=== PATIENT | male | born 1950 | race Caucasian/White ===

== ENCOUNTER 2016-07-04 12:44 | Observation (INO) | payer OTHER, MEDICARE ==
[~2016-07-04] VITALS: Ht 170.2 cm; Wt 86.5 kg
[~2016-07-04 12:44] MED LIST: ERYTHROMYC1 APPLICAT RIGHT EYE; GLUCOTROL10 MG PO; LISINOPRIL20 MG PO; METFORMIN HCL1000 MG PO; NICOTINE PATCH1 EAC2 TD; OMEPRAZOLE20 MG PO; PERCOCET 5/31 TABLET PO; SIMVASTATIN20 MG PO; SIMVASTATIN40 MG PO
[2016-07-04 13:44] LABS: HEMATOCRIT 49.2 % (38.0-50.0); MCH 30.4 PG (29.0-34.0); MCHC 33.5 G/DL (30.0-36.0); MCV 90.6 FL (86-99); MEAN PLAT.VOLUME 9.2 uM^3 (9.0-12.4); PLATELET COUNT 324 K/uL (156-360); RBC DIS.WIDTH-CV 12.1 % (11.8-14.6); RBC DIS.WIDTH-SD 40.5 % (39-53); RED BLOOD COUNT 5.43 M/uL (4.00-5.50); WHITE BLOOD COUNT 18.2 K/uL (4.1-10.2)
[2016-07-04 13:59] LABS: CHLORIDE 101 mEq/L (99-109); POTASSIUM 4.4 mEq/L (3.7-5.4); SODIUM 135 mEq/L (136-147)
[2016-07-04 14:00] LABS: GLUCOSE 93 mg/dL (70-99)
[2016-07-04 14:02] LABS: ANION GAP 11 MEQ/L (2-14)
[2016-07-04 14:04] LABS: GFR ESTIMATE (CALCULATED) > 59 mL/min/
[2016-07-04 14:05] LABS: UREA NITROGEN (BUN) 13 mg/dL (9-23)
[2016-07-04 14:11] LABS: TROP-I INTERPRETATION NEGATIVE; TROPONIN-I < 0.01 ng/mL (0.0-0.30)
[2016-07-04 18:12] LABS: ADD MIUA? YES; BILIRUBIN NEGATIVE; BLOOD SMALL; COLOR YELLOW ((YELLOW)); GLUCOSE (STRIP) NEGATIVE; KETONES NEGATIVE; LEUKOCYTES NEGATIVE; NITRITE NEGATIVE; PROTEIN (STRIP) 30; SPECIFIC GRAVITY 1.008 (1.000-1.030); UROBILINOGEN 0.2 MG/DL (0.2-1.0)
[2016-07-04 18:21] LABS: BACTERIA NONE SEEN /HPF; EPITHELIAL CELLS NONE SEEN /HPF; MUCUS NONE SEEN /LPF; RED BLOOD CELLS 0-5 /HPF (0-5); WHITE BLOOD CELLS 0-5 /HPF (0-5)
[2016-07-04 20:16] VITALS: BP 129/69
[2016-07-04 22:20] LABS: TROP-I INTERPRETATION NEGATIVE; TROPONIN-I < 0.01 ng/mL (0.0-0.30)
[2016-07-05 03:35] VITALS: BP 113/84
[2016-07-05 03:49] LABS: BASOPHIL COUNT 0.1 K/uL (0-0.1); EOSINOPHIL COUNT 0.2 K/uL (0-0.3); HEMATOCRIT 45.9 % (38.0-50.0); IMMATURE GRANULOCYTE (%) 1.8 % (0.0-0.7); IMMATURE GRANULOCYTE COUNT 0.3 K/uL; INSTRUMENT ABS NEUTROPHIL CT 9.8 K/uL; LYMPHOCYTE COUNT 4.6 K/uL (1.0-2.8); MCH 30.5 PG (29.0-34.0); MCHC 33.6 G/DL (30.0-36.0); MCV 90.9 FL (86-99); MEAN PLAT.VOLUME 9.3 uM^3 (9.0-12.4); MONOCYTE (%) 5.4 % (3-12); MONOCYTE COUNT 0.9 K/uL (0-0.8); NEUTROPHIL COUNT 9.8 K/uL (1.8-6.4); PLATELET COUNT 298 K/uL (156-360); RBC DIS.WIDTH-CV 12.2 % (11.8-14.6); RBC DIS.WIDTH-SD 40.5 % (39-53); RED BLOOD COUNT 5.05 M/uL (4.00-5.50); WHITE BLOOD COUNT 15.8 K/uL (4.1-10.2)
[2016-07-05 04:08] LABS: CHLORIDE 105 mEq/L (99-109); POTASSIUM 4.5 mEq/L (3.7-5.4); SODIUM 138 mEq/L (136-147)
[2016-07-05 04:11] LABS: GLUCOSE 130 mg/dL (70-99)
[2016-07-05 04:12] LABS: ANION GAP 10 MEQ/L (2-14)
[2016-07-05 04:13] LABS: TOTAL BILIRUBIN 0.4 mg/dL (0.0-1.0)
[2016-07-05 04:14] LABS: ALKALINE PHOSPHATASE 54 IU/L (3-129)
[2016-07-05 04:15] LABS: GFR ESTIMATE (CALCULATED) > 59 mL/min/
[2016-07-05 04:16] LABS: DIRECT BILIRUBIN 0.1 mg/dL (0.0-0.3); UREA NITROGEN (BUN) 14 mg/dL (9-23)
[2016-07-05 04:18] LABS: TROP-I INTERPRETATION NEGATIVE; TROPONIN-I < 0.01 ng/mL (0.0-0.30)
[2016-07-05 07:24] VITALS: BP 118/69
[2016-07-05 08:56] VITALS: BP 130/71
[2016-07-05 10:58] VITALS: BP 142/74
[2016-07-05] MEDS ORDERED: AMOXICILLIN500 MG PO (15:04)
== END 2016-07-05 16:38 | disposition home or self-care (01) ==
LOC: EME 12:44 → EDOF 18:10 → 5WEST 18:10 → EDOF 18:10 → 5WEST 19:48
PROVIDERS: Internal Medicine; Physician Assistant
DX: R55 Syncope and collapse (principal); R07.89 Other chest pain; J01.00 Acute maxillary sinusitis, unspecified; R05 Cough; K22.70 Barrett's esophagus without dysplasia; E78.5 Hyperlipidemia, unspecified; I10 Essential (primary) hypertension; E11.9 Type 2 diabetes mellitus without complications; J44.9 Chronic obstructive pulmonary disease, unspecified; F17.210 Nicotine dependence, cigarettes, uncomplicated
CPT/HCPCS: 70450; 71020; 71275; 80048; 80076; 81003; 82948; 84484; 85025; 85027; 93005; 93306; 93880; 94640; 94640 76; 99202; 99281; 99285; G0378; J1650; J7030

== ENCOUNTER → 2017-03-12 | Outpatient (CLI) | payer OTHER, MEDICARE ==
[~2017-03-12] MED LIST changes: +AMOXICILLIN500 MG PO
== END | disposition home or self-care (01) ==
LOC: RAD 14:55
DX: J44.9 Chronic obstructive pulmonary disease, unspecified (principal)
CPT/HCPCS: 71020

== ENCOUNTER → 2017-06-10 | Outpatient (CLI) | payer OTHER, MEDICARE | END | disposition home or self-care (01) | LOC: RAD 10:53 | DX: R93.5 Abnormal findings on diagnostic imaging of other abdominal regions, including retroperitoneum (principal) | CPT/HCPCS: 74019 ==